=== PATIENT | female | born 2000 | race Caucasian/White ===

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

== ENCOUNTER 2019-09-29 07:21 | Inpatient (IN) | payer BC ==
[~2019-09-29] VITALS: Ht 167.6 cm; Wt 126.1 kg
[2019-09-29 07:27] VITALS: Ht 167.6 cm; Wt 126.1 kg
[2019-09-29 08:01] LABS: PLATELET COUNT 289 x10^3mcL (130-400)
[2019-09-29 08:06] LABS: RED CELL DISTRIBUTION WIDTH 14.7 % (11.5-14.5)
[2019-09-29 08:19] LABS: CALCIUM 8.8 mg/dL (8.5-10.1); CARBON DIOXIDE 24.5 mmol/L (21-32); CHLORIDE SERUM 102 mmol/L (98-107); GFR1 > 60 mL/min; GLUCOSE SERUM 125 mg/dL (74-106); POTASSIUM SERUM 3.7 mmol/L (3.5-5.1); SODIUM SERUM 139 mmol/L (136-145)
[2019-09-29 08:23] LABS: ALKALINE PHOSPHATASE 66 U/L (46-116); ALT/SGPT 39 U/L (14-59); AST/SGOT 22 U/L (15-37); BILIRUBIN TOTAL 0.27 mg/dL (0.20-1.00); TOTAL PROTEIN, SERUM 7.8 g/dL (6.4-8.2)
[2019-09-29 08:24] LABS: ALBUMIN 3.2 g/dL (3.4-5.0)
[2019-09-29 09:59] VITALS: BP 120/78
[2019-09-29 11:26] LABS: AMPHETAMINE QUAL UR NONE DETECTED (See below)
[2019-09-29] MEDS ORDERED: TOPROL XL25 MG PO (12:07)
[2019-09-29 16:34] VITALS: BP 115/58
== END 2019-09-29 17:13 | disposition home or self-care (01) | DRG 309 ==
LOC: ED 07:21 → DU 08:57
PROVIDERS: Emergency Medicine; ADMIT Internal Medicine Pulmonary Disease
DX: I47.1 Supraventricular tachycardia (principal); Z68.42 Body mass index [BMI] 45.0-49.9, adult; E66.01 Morbid (severe) obesity due to excess calories
CPT/HCPCS: G0378; J0153; Q0092